=== PATIENT | male | born 1950 | race Two or more races ===

== ENCOUNTER 2021-06-02 13:06 | Inpatient (IN) | payer MEDICARE ==
[2021-06-02] MEDS ORDERED: METFORMIN HCL500 MG PO (14:37)
[2021-06-02] MEDS ORDERED: CRESTOR10 MG PO (14:37)
[2021-06-02 14:53] VITALS: BP 139/77
[2021-06-02 15:23] LABS: BASOPHILS # (AUTO) 0.1 (0.0-0.1); BASOPHILS % 0.6 % (0.0-1.0); EOSINOPHILS # (AUTO) 0.5 (0.0-0.4); HEMATOCRIT 36.7 % (38.2-49.6); LYMPHOCYTES # (AUTO) 2.9 (1.0-3.2); LYMPHOCYTES % 32.8 % (18.0-39.1); MEAN CORPUSCULAR HEMOGLOBIN 27.2 pg (28-32); MEAN CORPUSCULAR VOLUME 90.8 fL (81-99); MONOCYTES # (AUTO) 0.5 (0.2-0.8); MONOCYTES % 5.5 % (4.4-11.3); NEUTROPHILS # (AUTO) 4.8 (2.1-6.9); NEUTROPHILS % 54.6 % (38.7-80.0); PLATELET COUNT 241 x10e3/uL (140-360); RED BLOOD COUNT 4.04 x10e6/uL (4.3-5.7); RED CELL DISTRIBUTION WIDTH 14.6 % (11.7-14.4)
[2021-06-02 15:42] LABS: ALBUMIN 3.4 g/dL (3.5-5.0); ALBUMIN/GLOBULIN RATIO 0.7 (0.8-2.0); ANION GAP 19.1 mmol/L (8-16); CALCIUM 9.6 mg/dL (8.4-10.2); CREATININE, SERUM 0.86 mg/dL (0.72-1.25); POTASSIUM 4.1 mmol/L (3.5-5.1)
[2021-06-02] MEDS ORDERED: DEXTROSE 50% SYRINGE 50 ML IV PRN (17:00)
[2021-06-02] MEDS ORDERED: ACETAMINOPHEN 325 MG TAB PO PRN (17:00)
[2021-06-02] MEDS ORDERED: ONDANSETRON HCL INJ 2MG/ML 2ML 2 MG/ML VIAL IV PRN (17:00)
[2021-06-02] MEDS ORDERED: SODIUM CHLORIDE 0.9% 250ML 250 ML ONE (17:18)
[2021-06-02] MEDS: Vancomycin IV 1 GM in SODIUM CHLORIDE 0.9% 250ML 250 ML IV SCH ×2 (18:02→19:00)
[2021-06-02] MEDS: CEFEPIME 2 GM in SODIUM CHLORIDE 0.9% 100 ML IV SCH (18:02)
[2021-06-02 18:04] VITALS: BP 139/77
[2021-06-02] MEDS: HYDROCODONE/APAP 5MG-325MG TAB PO PRN (18:25)
[2021-06-02 20:32] VITALS: BP 132/72
[2021-06-02] MEDS: INSULIN LISPRO 100 UNIT/1 ML 3ML VIAL SQ SCH (21:00)
[2021-06-03] VITALS (7 sets, daily range): BP systolic 114–145; BP diastolic 64–72
[2021-06-03] MEDS: Vancomycin IV 1 GM in SODIUM CHLORIDE 0.9% 250ML 250 ML IV SCH ×2 (02:00→15:09)
[2021-06-03] MEDS: CEFEPIME 2 GM in SODIUM CHLORIDE 0.9% 100 ML IV SCH ×2 (04:15→17:00)
[2021-06-03] MEDS: INSULIN LISPRO 100 UNIT/1 ML 3ML VIAL SQ SCH ×4 (08:30→21:39)
[2021-06-03] MEDS: HYDROCODONE/APAP 5MG-325MG TAB PO PRN ×2 (09:10→17:00)
[2021-06-03] MEDS ORDERED: LIDOCAINE 4% PATCH TP PRN (12:15)
[2021-06-03] MEDS ORDERED: ONDANSETRON HCL INJ 2MG/ML 2ML 2 MG/ML VIAL IV PRN (12:15)
[2021-06-03] MEDS ORDERED: BENZONATATE 100 MG CAP PO PRN (12:15)
[2021-06-03] MEDS ORDERED: HYDRALAZINE HCL 20 MG/ML VIAL IV PRN (12:15)
[2021-06-03] MEDS ORDERED: ALBUTEROL/IPRATROPIUM 3 ML NEB NEB PRN (12:15)
[2021-06-03] MEDS ORDERED: DEXTROSE 50% SYRINGE 50 ML IV PRN (12:15)
[2021-06-03] MEDS ORDERED: DOCUSATE SODIUM 100 MG CAP PO PRN (12:15)
[2021-06-03] MEDS ORDERED: POTASSIUM CHLORIDE 20 MEQ TAB CR PO PRN (12:15)
[2021-06-03] MEDS ORDERED: DIPHENHYDRAMINE HCL 25 MG CAP PO PRN (12:15)
[2021-06-03] MEDS ORDERED: SIMETHICONE 80 MG CHEW PO PRN (12:15)
[2021-06-03] MEDS: ENOXAPARIN SOD INJ 40 MG/0.4 ML SYR SC SCH (17:03)
[2021-06-03] MEDS ORDERED: MELATONIN 5 MG TABLET PO PRN (21:00)
[2021-06-03] MEDS: SIMVASTATIN 20 MG TAB PO SCH (21:36)
[2021-06-04] VITALS (8 sets, daily range): BP systolic 114–144; BP diastolic 61–76
[2021-06-04] MEDS: Vancomycin IV 1 GM in SODIUM CHLORIDE 0.9% 250ML 250 ML IV SCH (02:06)
[2021-06-04] MEDS: ACETAMINOPHEN 325 MG TAB PO PRN (05:28)
[2021-06-04 06:09] LABS: BASOPHILS % 0.6 % (0.0-1.0); EOSINOPHILS # (AUTO) 0.3 (0.0-0.4); EOSINOPHILS % 4.8 % (0.0-6.0); HEMATOCRIT 33.9 % (38.2-49.6); HEMOGLOBIN 10.7 g/dL (14.0-18.0); LYMPHOCYTES # (AUTO) 1.6 (1.0-3.2); LYMPHOCYTES % 24.2 % (18.0-39.1); MEAN CORPUSCULAR HEMOGLOBIN 26.9 pg (28-32); MEAN CORPUSCULAR HGB CONC 31.6 g/dL (31-35); MEAN CORPUSCULAR VOLUME 85.2 fL (81-99); MONOCYTES # (AUTO) 0.6 (0.2-0.8); MONOCYTES % 9.9 % (4.4-11.3); NEUTROPHILS # (AUTO) 3.9 (2.1-6.9); NEUTROPHILS % 59.9 % (38.7-80.0); PLATELET COUNT 197 x10e3/uL (140-360); RED BLOOD COUNT 3.98 x10e6/uL (4.3-5.7); RED CELL DISTRIBUTION WIDTH 14.6 % (11.7-14.4)
[2021-06-04 06:29] LABS: ANION GAP 14.7 mmol/L (8-16); CALCIUM 8.7 mg/dL (8.4-10.2); CREATININE, SERUM 0.81 mg/dL (0.72-1.25); POTASSIUM 3.7 mmol/L (3.5-5.1)
[2021-06-04] MEDS: CEFEPIME 2 GM in SODIUM CHLORIDE 0.9% 100 ML IV SCH (06:49)
[2021-06-04] MEDS: HYDROCODONE/APAP 5MG-325MG TAB PO PRN (09:52)
[2021-06-04] MEDS: PANTOPRAZOLE SOD 40 MG TABEC PO SCH (09:53)
[2021-06-04] MEDS: INSULIN LISPRO 100 UNIT/1 ML 3ML VIAL SQ SCH ×4 (10:25→20:07)
[2021-06-04] MEDS ORDERED: DAPTOMYCIN 500mg 10ML 500 MG in SODIUM CHLORIDE 0.9% 100 ML IV SCH (12:45)
[2021-06-04] MEDS ORDERED: Vancomycin IV 1.25 GM in SODIUM CHLORIDE 0.9% 250ML 250 ML IV SCH (14:00)
[2021-06-04] MEDS ORDERED: ONDANSETRON HCL 4 MG ORAL DISINTEGRATING TAB PO PRN (14:15)
[2021-06-04] MEDS: DAPTOMYCIN 500mg 10ML 500 MG in SODIUM CHLORIDE 0.9% 100 ML IV SCH (14:37)
[2021-06-04] MEDS: ENOXAPARIN SOD INJ 40 MG/0.4 ML SYR SC SCH (16:20)
[2021-06-04] MEDS: SIMVASTATIN 20 MG TAB PO SCH (20:06)
[2021-06-05] VITALS: BP 126/73
[2021-06-05] MEDS: ACETAMINOPHEN 325 MG TAB PO PRN ×2 (02:09→10:10)
[2021-06-05 04:00] VITALS: BP 114/60
[2021-06-05 08:00] VITALS: BP 116/68
[2021-06-05 08:04] VITALS: BP 114/64
[2021-06-05] MEDS: PANTOPRAZOLE SOD 40 MG TABEC PO SCH (09:43)
[2021-06-05] MEDS: INSULIN LISPRO 100 UNIT/1 ML 3ML VIAL SQ SCH ×2 (09:43→11:30)
[2021-06-05 12:00] VITALS: BP 129/71
[2021-06-05] MEDS ORDERED: CUBICIN500 MG/VIA IV (13:17)
[2021-06-05] MEDS: DAPTOMYCIN 500mg 10ML 500 MG in SODIUM CHLORIDE 0.9% 100 ML IV SCH (14:55)
== END 2021-06-05 16:35 | disposition home or self-care (01) | DRG 638 ==
LOC: MED/SURG2 13:55
PROVIDERS: ADMIT Internal Medicine; ATTEND Internal Medicine
PROC: 02HV33Z Insertion of Infusion Device into Superior Vena Cava, Percutaneous Approach (ICD-10-PCS; principal; 2021-06-02)
DX: E11.628 Type 2 diabetes mellitus with other skin complications (principal); L03.116 Cellulitis of left lower limb; E78.5 Hyperlipidemia, unspecified; I10 Essential (primary) hypertension; M76.62 Achilles tendinitis, left leg; M72.2 Plantar fascial fibromatosis; Z20.822 Contact with and (suspected) exposure to COVID-19; Z79.84 Long term (current) use of oral hypoglycemic drugs
CPT/HCPCS: 36415; 36569; 71045; 80048; 80053; 80202; 82948; 85025; 85651; 86141; 94799; 96361; 97139; 99251; J0692; J1650; J3370; J7050; U0002